=== PATIENT | female | born 1965 | race Caucasian/White ===

== ENCOUNTER 2016-08-07 11:55 | Emergency (ER) | payer OTHER ==
--- NOTE | 2016-08-07 12:30 | UCPHY ---
[id number] 51-year-old who got out of bed quickly yesterday morning and had an episode during which the room was spinning. This seemed to resolve but later she was looking upward, reaching into a cabinet, and again had spinning. She recovered but this morning when she got out of bed she had persistent dizziness, a sensation of the room spinning. This is worse when she turns her head to the left or rolls to the left. She has had nausea but no vomiting. She feels off balance when walking. No change in her hearing. She has not had recent fever, cough, or cold. She has been under a great deal of stress. She has not taken any medications this morning. REVIEW OF SYSTEMS: A ten point review of systems was performed and is negative with the exception of the items mentioned in the HPI. Source: Patient Exam Limitations: No limitations - Medical/Surgical History Other PMH: Negative - Family History Significant Family History: No pertinent family hx - Social History Smoking Status: Never smoked Additional Social History: She works as a credit and loan collections supervisor. She lives alone. - Physical Exam Exam: General Appearance: Alert. Vital signs reviewed. Eyes: Pupils equal and round, no conjunctival injection, no discharge. Anicteric. ENT, Mouth: Mucous membranes are moist, no oropharyngeal erythema or edema. Neck: No lymphadenopathy, supple. Respiratory: Lungs are clear to auscultation; no wheezes, rales, or rhonchi. Cardiovascular: Regular rate and rhythm; no murmur, rub, or gallop. Gastrointestinal: Abdomen is soft and nontender, no masses or organomegaly, bowel sounds normal. Skin: Warm and dry, no rashes on exposed skin, normal color. Extremities: No lower extremity edema, no calf tenderness or swelling. Neurological: Alert and oriented. Moving all four extremities easily and equally. Cranial nerves II through XII are examined and are intact (visual acuity not tested). No nystagmus. Strength is 5 over 5 bilaterally with testing of all major motor groups. Sensation is intact to light touch over all 4 extremities. Deep tendon reflexes are 2+ in the biceps and knees bilaterally. Finger-to- nose is performed accurately. Psychiatric: Normal affect. Constitutional: Initial Vital Signs Temperature (C) 36.4 C 08/07/16 12:25 Heart Rate 70 08/07/16 12:25 Respiratory Rate 18 08/07/16 12:25 Blood Pressure 120/72 08/07/16 12:25 O2 Sat (%) 97 08/07/16 12:25 O2 Delivery Mode Room Air Allergies/Adverse Reactions: metronidazole [From Flagyl] Allergy (Verified 08/07/16 12:42) Penicillins Allergy (Verified 08/07/16 12:42) Home Medications: Medication Instructions Recorded Meclizine HCl 25 mg PO TID #15 tablet 08/07/16 Ondansetron Odt [Zofran Odt 4 mg 4 mg PO Q4 PRN #10 tab 08/07/16 (RX)] Medical Decision Making ED Course/Re-evaluation: Healthy 51-year-old with classic signs and symptoms of peripheral vertigo. She has a normal neurologic exam. I think that this is a benign paroxysmal positional vertigo or vestibular neuronitis. I do not think that this is an acute labyrinthitis--she does not have any hearing deficit, TMs appear normal. She is not taking any medications that RO toxic. She has no history of Meniere disease and is not experiencing tinnitus. These episodes were acute in onset. She has not had any ear trauma. I do not suspect a central cause for her vertigo such as a cerebellar hemorrhage, cerebellar infarction, tumor, MS. She was offered Zofran and Valium in the urgent care. She opted not to receive any medications. She would like to return home and try meclizine. She is given a prescription for meclizine. We discussed the danger signs that should prompt her to return. - Data Points Medications Given: Discontinued Medications Diazepam (Valium Injection) 2.5 mg IVP EDNOW ONE Stop: 08/07/16 12:52 Last Admin: 08/07/16 13:41 Dose: Not Given Ondansetron HCl (Zofran) 4 mg IVP EDNOW ONE Stop: 08/07/16 12:51 Last Admin: 08/07/16 13:42 Dose: Not Given Departure - Departure Disposition: Home, Routine, Self-Care Clinical Impression: Vertigo Condition: Good Instructions: Vertigo (ED), Benign Paroxysmal Positional Vertigo (ED) Additional Instructions: When you go home take 1 of the Zofran. But it dissolve under your tongue. About 15 minutes later take 1 of the meclizine. Go to bed. If your vertigo persists you might need to return, but most likely you will wake up feeling better. Be careful when you awaken, move around slowly and carefully. Referrals: Gaurav Aldrich MD [Primary Care Provider] - As per Instructions Prescriptions: Meclizine HCl 25 mg PO TID #15 tablet Ondansetron Odt [Zofran Odt 4 mg (RX)] 4 mg PO Q4 PRN #10 tab PRN Reason: nausea - PQRS PQRS Measurement: Does not apply
[2016-08-07] MEDS ORDERED: ONDANSETRON 4 MG/2 ML VIAL IVP ONE (12:50)
[2016-08-07] MEDS ORDERED: DIAZEPAM 10 MG/2 ML SYR IVP ONE (12:51)
[2016-08-07 22:11] VITALS: BP 104/62; PULSE 75; RESP 20; TEMP 98.2; O2SAT 94
== END 2016-08-07 13:43 | disposition home or self-care (01) ==
LOC: CED 11:55
DX: R42 Dizziness and giddiness (principal); Z73.3 Stress, not elsewhere classified
CPT/HCPCS: G0463-PO

== ENCOUNTER → 2016-11-11 | Outpatient (CLI) | payer OTHER | LOC: CIMAGING 07:13 | DX: Z12.31 Encounter for screening mammogram for malignant neoplasm of breast (principal) | CPT/HCPCS: G0202 ==

== ENCOUNTER → 2018-05-02 | Outpatient (CLI) | payer OTHER | LOC: CIMAGING 07:23 | PROVIDERS: ATTEND Obstetrics & Gynecology Gynecology | DX: Z12.31 Encounter for screening mammogram for malignant neoplasm of breast (principal) ==

== ENCOUNTER 2018-09-16 07:42 | Emergency (ER) | payer OTHER ==
--- NOTE | 2018-09-16 08:20 | EDPHY ---
H & P Stated Complaint: cough and headache since monday . sob with exertion . back hurts w cough Time Seen by Provider: 09/16/18 07:53 HPI/ROS: Chief Complaint: Cough, body aches, nausea, chills HPI: 53-year-old woman with a history of asthma is presenting with 2 days of chills, body aches, dry, nonproductive cough. Patient states that when she walks rapidly or speaks rapidly she goes into a dry coughing fit. Cough is not productive of any sputum. She has had a sore throat. Some headache and congestion. Also some bilateral ear pain. Had has history of sinusitis in the past. Has had some nausea but no vomiting. No recent travel. No ill contacts. She did get a flu shot this year. ROS: 10 systems were reviewed and were negative except those elements noted in the HPI. PMH: Asthma Social History: No smoking, no alcohol, no recreational drug use Family History: non-contributory Physical Exam: Gen: Awake, Alert, No Distress HEENT: Mild sinus tenderness to percussion bilateral maxillary sinuses Ears: Normal Nose: no rhinorrhea Eyes: PERRLA, EOMI Mouth: Moist mucosa mild oral pharyngeal erythema without edema or exudate Neck: Supple, no JVD Chest: nontender, lungs clear to auscultation Heart: S1, S2 normal, no murmur Abd: Soft, non-tender, no guarding Back: no CVA tenderness, no midline tenderness Ext: no edema, non-tender Skin: no rash Neuro: CN II-XII intact, Sensation grossly intact, Strength 5/5 in bilateral upper and lower extremities - Personal History Current Tetanus Diphtheria and Acellular Pertussis (TDAP): Yes - Medical/Surgical History Other PMH: d+c - Social History Smoking Status: Never smoked Constitutional: Initial Vital Signs Temperature (C) 36.9 C 09/16/18 07:54 Heart Rate 99 09/16/18 07:54 Respiratory Rate 16 09/16/18 07:54 Blood Pressure 134/78 H 09/16/18 07:54 O2 Sat (%) 94 09/16/18 07:54 O2 Delivery Mode Room Air Allergies/Adverse Reactions: metronidazole [From Flagyl] Allergy (Verified 09/16/18 07:48) Penicillins Allergy (Verified 09/16/18 07:48) multiple enviromental Allergy (Uncoded 09/16/18 07:54) Home Medications: Medication Instructions Recorded Oseltamivir Phosphate [Tamiflu 75 75 mg PO BID #10 cap 09/16/18 mg (*)] Medical Decision Making ED Course/Re-evaluation: 53-year-old asthmatic with flu-like symptoms. She is influenza a positive. Given her underlying chronic respiratory disease will start her on Tamiflu per CDC guidelines. She will follow up with primary care physician. Departure - Departure Disposition: Home, Routine, Self-Care Clinical Impression: Influenza A Condition: Good Instructions: Influenza (ED) Additional Instructions: Alternate acetaminophen (1000 mg) with ibuprofen (400 mg) every 4 hours as needed for fevers, chills, aches or pain. Use your albuterol inhaler 1-2 puffs every 2-4 hours as needed for cough or wheeze. Always use a spacer device with your inhaler. Please take her full course of Tamiflu. Your symptoms should last for about 7 days. Follow up with primary care physician in a week if symptoms are not improving. Return to the emergency department for worsening cough, shortness of breath, uncontrolled fever, vomiting, or any other concerns. Referrals: Gaurav Aldrich MD [Medical Doctor] - As per Instructions Prescriptions: Oseltamivir Phosphate [Tamiflu 75 mg (*)] 75 mg PO BID #10 cap
[2018-09-16 09:18] VITALS: BP 110/66
== END 2018-09-16 09:00 | disposition home or self-care (01) ==
LOC: CED 07:42
DX: J10.1 Influenza due to other identified influenza virus with other respiratory manifestations (principal)
CPT/HCPCS: 99283-ER

== ENCOUNTER 2019-01-07 00:38 | Emergency (ER) | payer OTHER | END 2019-01-07 04:08 | disposition home or self-care (01) | LOC: CED 00:38 ==